=== PATIENT | female | born 1985 | race Two or more races ===

== ENCOUNTER → 2016-12-18 | Outpatient (CLI) | payer BC, OTHER ==
[~2016-12-18] MED LIST: None at this Time
[2016-12-18 08:31] LABS: HEMOGLOBIN 11.9 g/dL (11.7-16.4)
== END | disposition home or self-care (01) ==
LOC: STAR 07:42
PROVIDERS: ATTEND Obstetrics & Gynecology
DX: Z01.818 Encounter for other preprocedural examination (principal); N92.6 Irregular menstruation, unspecified
CPT/HCPCS: 36415; 85025

== ENCOUNTER 2016-12-24 10:10 | Day surgery (SDC) | payer OTHER ==
[~2016-12-24] VITALS: Ht 165.1 cm; Wt 69.0 kg
[2016-12-24] MEDS ORDERED: FENTANYL PF 250 MCG/5ML ONE (11:07)
[2016-12-24] MEDS ORDERED: MIDAZOLAM 1 MG/ML, 2ML ONE (11:07)
[2016-12-24] MEDS ORDERED: BUPIVACAINE/PF-EPI 0.25% 1:200K ONE (11:26)
[2016-12-24] MEDS ORDERED: LACTATED RINGERS 1,000 ML IV SCH (11:31)
[2016-12-24 11:37] VITALS: BP 104/71
[2016-12-24] MEDS ORDERED: ACETAMINOPHEN 325 MG TABLET PO PRN (12:00)
[2016-12-24] MEDS ORDERED: HYDROmorphone 1 MG/ML, 1ML IV PRN (12:00)
[2016-12-24] MEDS ORDERED: ONDANSETRON 2MG/ML, 2ML IVPush PRN (12:00)
[2016-12-24] MEDS ORDERED: MIDAZOLAM 1 MG/ML, 2ML IV PRN (12:00)
[2016-12-24] MEDS ORDERED: PROMETHAZINE 25 MG/ML, 1ML IV PRN (12:00)
[2016-12-24] MEDS ORDERED: FENTANYL PF 100 MCG/2ML IV PRN (12:00)
[2016-12-24] MEDS ORDERED: METOCLOPRAMIDE 5 MG/ML, 2ML IV PRN (12:00)
[2016-12-24] MEDS ORDERED: MEPERIDINE/PF 25MG/0.5ML IVPush PRN (12:00)
[2016-12-24] MEDS ORDERED: hydrALAzine 20 MG/ML, 1ML IV PRN (12:00)
[2016-12-24] MEDS ORDERED: OXYcodone 5 MG/5 ML ORAL.SOL UDC PO PRN (12:00)
[2016-12-24] MEDS ORDERED: LABETALOL 5MG/ML, 20ML IV PRN (12:00)
[2016-12-24] MEDS ORDERED: ONDANSETRON 2MG/ML, 2ML ONE (12:15)
[2016-12-24] MEDS ORDERED: ROCURONIUM 10 MG/ML ONE (12:15)
[2016-12-24] MEDS ORDERED: KETOROLAC 30 MG/1 ML ONE (12:15)
[2016-12-24] MEDS ORDERED: CEFAZOLIN 1,000 MG ONE (12:15)
[2016-12-24] MEDS ORDERED: DEXAMETHASONE 4 MG/ML, 1ML ONE (12:15)
[2016-12-24] MEDS ORDERED: PROPOFOL 10 MG/ML, 20ML ONE (12:15)
[2016-12-24] MEDS ORDERED: SUCCINYLCHOLINE 20 MG/ML, 10ML ONE (12:15)
[2016-12-24 12:24] LABS: BLOOD UREA NITROGEN 6 mg/dL (7-18)
[2016-12-24 12:31] LABS: ASPARTATE AMINO TRANSFERASE 7 U/L (15-37)
[2016-12-24 12:33] LABS: HCG UR OBC PASS
[2016-12-24] MEDS ORDERED: OXYcodone 5 MG/5 ML ORAL.SOL UDC ONE (13:24)
== END 2016-12-24 15:30 | disposition home or self-care (01) ==
LOC: OUT 10:10
PROVIDERS: ATTEND Obstetrics & Gynecology
DX: N84.0 Polyp of corpus uteri (principal); G43.909 Migraine, unspecified, not intractable, without status migrainosus; D64.9 Anemia, unspecified; Z87.442 Personal history of urinary calculi; Z90.49 Acquired absence of other specified parts of digestive tract; Z90.79 Acquired absence of other genital organ(s)
CPT/HCPCS: 36415; 58558; 80053; 81025; 88304; J0330; J0690; J1100; J1885; J2250; J2405; J2704; J3010; J7120